=== PATIENT | male | born 1975 | race Caucasian/White ===

== ENCOUNTER 2021-02-20 20:00 | Outpatient (CLI) | payer OTHER, SELFPAY | END 2021-02-20 20:01 | disposition home or self-care (01) | LOC: SLEEP 02-21 10:08 | PROVIDERS: Visit Provider Emergency Medicine Emergency Medical Services | DX: R06.83 Snoring (principal); R53.83 Other fatigue | CPT/HCPCS: 95810 ==

== ENCOUNTER → 2021-03-22 13:21 | Outpatient (BNVA) | payer OTHER, SELFPAY | PROVIDERS: Referring Provider Family Medicine; Visit Provider Podiatrist Foot & Ankle Surgery | DX: M79.671 Pain in right foot (principal) | CPT/HCPCS: 73610; 73630 ==

== ENCOUNTER → 2022-01-08 08:05 | Outpatient (BNVA) | payer OTHER, SELFPAY | PROVIDERS: Visit Provider Podiatrist Foot & Ankle Surgery | DX: G57.61 Lesion of plantar nerve, right lower limb (principal); M25.371 Other instability, right ankle; M72.2 Plantar fascial fibromatosis; M95.8 Other specified acquired deformities of musculoskeletal system | CPT/HCPCS: 73630; 99213; 99214 ==

== ENCOUNTER 2022-01-08 13:54 | Outpatient (CLI) | payer OTHER, SELFPAY | END 2022-01-08 13:55 | disposition home or self-care (01) | LOC: SPT 13:55 | PROVIDERS: Visit Provider Podiatrist Foot & Ankle Surgery | DX: Z46.89 Encounter for fitting and adjustment of other specified devices (principal); M79.672 Pain in left foot | CPT/HCPCS: 97760; L4397 ==

== ENCOUNTER → 2022-04-11 13:58 | Outpatient (BNVA) | payer OTHER, SELFPAY | PROVIDERS: Visit Provider Podiatrist Foot & Ankle Surgery | DX: G57.61 Lesion of plantar nerve, right lower limb; M25.371 Other instability, right ankle; M72.2 Plantar fascial fibromatosis; M79.672 Pain in left foot; M95.8 Other specified acquired deformities of musculoskeletal system | CPT/HCPCS: 99213 ==

== ENCOUNTER → 2023-04-13 07:50 | Outpatient (BNVA) | payer OTHER, SELFPAY | PROVIDERS: Visit Provider Podiatrist Foot & Ankle Surgery | DX: M95.8 Other specified acquired deformities of musculoskeletal system (principal); M72.2 Plantar fascial fibromatosis; G57.61 Lesion of plantar nerve, right lower limb; M25.371 Other instability, right ankle | CPT/HCPCS: 99213 ==

== ENCOUNTER 2024-01-01 11:51 | Outpatient (CLI) | payer OTHER, SELFPAY ==
--- NOTE | 2024-01-01 11:57 | MR_ITS ---
WS: [id number] MRI BRAIN WITH AND WITHOUT CONTRAST HISTORY: CHRONIC HEADACHES COMPARISON: None available. TECHNIQUE: Multiplanar imaging performed through the brain with MultiHance 17 ml's IV. No acute infarcts are seen. Hale-white matter differentiation is well preserved. Minimal small vessel ischemic disease. No susceptibility artifacts or prior lacunar infarcts. Ventricles and extra-axial spaces are normal. Clivus and pituitary gland are normal. Visualized posterior fossa and brainstem are also normal. Postcontrast images are negative for masses or vascular malformations. Dural venous sinuses are normal. Paranasal sinuses: Well aerated with no significant disease. Mastoid air cells: Normal. Calvarium and scalp: Normal. IMPRESSION: 1. Minimal small vessel ischemic disease. 2. No acute infarct or hemorrhage. 3. No enhancing mass. No prior infarct.
[2024-01-01] MEDS: gadobenate dimeglumine 20 mL vial IV (12:59)
== END 2024-01-01 11:52 | disposition home or self-care (01) ==
LOC: RAD 11:52
PROVIDERS: Visit Provider Emergency Medicine Emergency Medical Services
DX: R51.9 Headache, unspecified (principal); R09.81 Nasal congestion
CPT/HCPCS: 70553; 87400; A9577

== ENCOUNTER → 2024-01-05 08:50 | Outpatient (BNVA) | payer OTHER, SELFPAY | PROVIDERS: Referring Provider Emergency Medicine Emergency Medical Services; Visit Provider Surgery | DX: Z12.11 Encounter for screening for malignant neoplasm of colon (principal) | CPT/HCPCS: 99203 ==

== ENCOUNTER 2024-02-16 09:02 | Day surgery (SDC) | payer OTHER, SELFPAY ==
--- NOTE | 2024-02-16 09:17 | W.PM.OPSFHP ---
Same Day Surgery H&P Indication for Procedure/HPI DATE OF PROCEDURE: February 16, 2024 CHIEF COMPLAINT/INDICATIONFOR SURGICAL PROCEDURE: need for screening colonoscopy PREOP DIAGNOSIS: need for screenig colonoscopy PLANNED PROCEDURE: Operation Date: 02/16/24 10:10 Proposed Procedures p Colonoscopy 23732, G0121 ,Z12.11(Not Applicable) - Reji Persaud MD Medications/Allergies* Home Medications Medication Instructions Recorded Confirmed Type ibuprofen 200 mg tablet 1,000 mg PO Q6H PRN Pain 02/11/24 02/11/24 History meloxicam 15 mg tablet 15 mg PO DAILY PRN arthritis pain 02/11/24 02/11/24 History Allergies/Adverse Reactions Allergy/AdvReac Type Severity Reaction Status Date / Time No Known Allergies Allergy Verified 12/15/23 14:54 Pertinent History/Comorbid Conditions* Medical History (Updated 01/08/22 @ 10:22 by Jigar Gracia DPM) Lateral epicondylitis of right elbow Social History Smoking and tobacco/nicotine status: never used tobacco/nicotine Alcohol intake: never Substance/Drug Use: never Pertinent Exam Findings alert, oriented x 3, clear to auscultation bilaterally and regular rate & rhythm Recommendations Surgery/Procedure today Coding Level of Care Code Acute Code for Chg Fwd
[2024-02-16 09:19] VITALS: BP 131/92; PULSE 91; RESP 17; TEMP 36.4; O2SAT 95; BMI 28.7
[2024-02-16] MEDS: sodium chloride 0.9% 1,000 ML 30 ML IV (09:27)
--- NOTE | 2024-02-16 09:44 | ANES.PREANE2 ---
Pre-Anesthetic Assessment Height/Weight: Height 1.78 m Weight 90.718 kg Temp Pulse Resp BP Pulse Ox O2 Del Method 97.6 F 91 17 131/92 95 Room Air 02/16/24 09:19 02/16/24 09:19 02/16/24 09:19 02/16/24 09:19 02/16/24 09:19 02/16/24 09:19 Preop Diagnosis: need for screenig colonoscopy Operation Date: 02/16/24 10:10 Proposed Procedures p Colonoscopy 81755, G0121 ,Z12.11(Not Applicable) - Reji Persaud MD Last intake: Intake Last Liquid Date 02/15/24 Last Liquid Time 21:00 Last Solid Date 02/14/24 Last Solid Time 17:00 Social No tobacco Exam alert, oriented x 3, clear to auscultation bilaterally and regular rate & rhythm Airway Submandibular: within normal limits Cervical ROM: within normal limits Mallampati: Class I History/ROS No significant history except as noted Anesthetic Plan ASA status: 1 Anesthesia: MAC Risk of > 500 ml blood loss (7ml/kg in children): No Medications/Allergies Home Medications Medication Instructions Recorded Confirmed Last Taken Type Tennis Elbow Strap #1 ea 02/03/20 01/05/24 Unknown Rx custom molded orthotics #1 ea 04/23/21 01/05/24 Unknown Rx leather shoe #1 ea 06/24/21 01/05/24 Unknown Rx Leather Shoe #1 ea 07/19/21 01/05/24 Unknown Rx night splint #1 ea 01/08/22 01/05/24 Unknown Rx Custom Carbon Fiber Orthotics #1 ea 04/20/23 01/05/24 Unknown Rx ibuprofen 200 mg tablet 1,000 mg PO Q6H PRN Pain 02/11/24 02/11/24 Unknown History meloxicam 15 mg tablet 15 mg PO DAILY PRN arthritis pain 02/11/24 02/11/24 Unknown History Allergies Allergy/AdvReac Type Severity Reaction Status Date / Time No Known Allergies Allergy Verified 12/15/23 14:54 Current Medications Generic Name Dose Route Start Last Admin Trade Name Freq PRN Reason Stop Dose Admin Sodium Chloride 1,000 mls @ 30 mls/hr 02/16/24 09:15 02/16/24 09:27 Sodium Chloride 0.9% IV 02/17/24 09:14 30 mls/hr .Q24H RITO Administration PFSH Anesthesia Medical History Lateral epicondylitis of right elbow Social History Smoking and tobacco/nicotine status: never used tobacco/nicotine Alcohol intake: never Substance/Drug Use: never Data Anesthesia Cardiac Studies: No Data to Display
[2024-02-16 10:48] VITALS: BP 112/77; PULSE 79; RESP 16; TEMP 36.2; O2SAT 92
--- NOTE | 2024-02-16 13:39 | P.ANESPOST_ITS ---
Inpatient post-anesthesia follow up: Vital signs: Temperature 97.1 F Pulse Rate 79 Respiratory Rate 16 Blood Pressure 112/77 Pulse Oximetry 92 Oxygen Delivery Me thod Room Air Oxygen Flow Rate Fraction of Inspir ed Oxygen Hydration adequate: Yes Nausea and vomiting: No Pain level: con trolled Mental status: Baseline Additional Comments: no apparent anesthetic complications noted
== END 2024-02-16 11:08 | disposition home or self-care (01) ==
PROVIDERS: PCP Emergency Medicine Emergency Medical Services; Visit Provider Surgery
PROC: 0DJD8ZZ Inspection of Lower Intestinal Tract, Via Natural or Artificial Opening Endoscopic (ICD-10-PCS; CPT 45378; principal; 2024-02-16 10:10)
DX: Z12.11 Encounter for screening for malignant neoplasm of colon (principal)
CPT/HCPCS: 45378; J2704; J7030

== ENCOUNTER → 2024-02-18 11:17 | Outpatient (BNVA) | payer OTHER, SELFPAY | PROVIDERS: PCP Emergency Medicine Emergency Medical Services; Visit Provider Specialist | DX: G43.909 Migraine, unspecified, not intractable, without status migrainosus (principal); G44.221 Chronic tension-type headache, intractable | CPT/HCPCS: 99203 ==

== ENCOUNTER → 2024-06-10 12:52 | Outpatient (BNVA) | payer OTHER, SELFPAY | PROVIDERS: PCP Emergency Medicine Emergency Medical Services; Visit Provider Specialist | DX: G43.909 Migraine, unspecified, not intractable, without status migrainosus (principal); G44.221 Chronic tension-type headache, intractable | CPT/HCPCS: 99213 ==

== ENCOUNTER → 2024-12-08 11:16 | Outpatient (BNVA) | payer OTHER, SELFPAY | PROVIDERS: PCP Emergency Medicine Emergency Medical Services; Visit Provider Specialist | DX: G43.711 Chronic migraine without aura, intractable, with status migrainosus (principal); G44.221 Chronic tension-type headache, intractable | CPT/HCPCS: 99213 ==

== ENCOUNTER → 2025-02-20 09:46 | Outpatient (BNVA) | payer OTHER, SELFPAY | PROVIDERS: PCP Emergency Medicine Emergency Medical Services; Visit Provider Physician Assistant | DX: M25.561 Pain in right knee (principal); M25.562 Pain in left knee | CPT/HCPCS: 73560; 73565; 99203 ==

== ENCOUNTER → 2025-03-22 10:40 | Outpatient (BNVA) | payer OTHER, SELFPAY | PROVIDERS: PCP Emergency Medicine Emergency Medical Services; Visit Provider Specialist | DX: G43.909 Migraine, unspecified, not intractable, without status migrainosus (principal); G44.221 Chronic tension-type headache, intractable | CPT/HCPCS: G0463 ==